=== PATIENT | female | born 1995 | race Caucasian/White ===

== ENCOUNTER 2020-01-10 02:29 | Emergency (ER) | payer SELFPAY ==
[2020-01-10 02:29] VITALS: BP 126/92; PULSE 81; RESP 20; TEMP 36.8; O2SAT 96
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
[2020-01-10] MEDS: SODIUM CHLORIDE 0.9% IV 1,000 ML 999 ML IV CONT (02:46)
[2020-01-10 02:58] LABS: Basophils Percent Auto 0.9 % (0.2-1.2); Eosinophils Percent Auto 0.7 % (0-4.4); Hematocrit 41.2 % (37.0-47.0); Hemoglobin 13.6 g/dL (12.0-15.0); Immature Granulocyte Absolute 0.02 K/mm3 (0.00-0.031); Immature Granulocyte Percent A 0.5 % (0-0.5); Lymphocytes Absolute Auto 1.48 K/mm3 (0.9-3.2); Lymphocytes Percent Auto 34.6 % (18.3-44.2); Mean Corpuscular Hemoglobin 32.2 pg (26-34); Mean Corpuscular Volume 97.4 fl (80-100); Mean Platelet Volume 9.4 fl (7.4-10.4); Monocytes Absolute Auto 0.4 K/mm3 (0.1-0.6); Monocytes Percent Auto 8.9 % (2.6-8.5); Neutrophils Absolute Auto 2.3 K/mm3 (1.3-6.7); Neutrophils Percent Auto 54.4 % (45.5-73.1); Platelet Count Result 156 k/mm3 (150-375); Red Blood Count 4.23 M/mm3 (4.2-5.4); Red Cell Distribution Width 14.6 % (11.5-14.5); White Blood Count 4.3 K/mm3 (4.5-10.0)
[2020-01-10 03:07] LABS: Alanine Aminotransferase 44 U/L (4-35); Albumin Level 4.3 g/dL (3.5-5.1); Alkaline Phosphatase 69 U/L (38-126); Anion Gap 15.7 mmol/L (7-16); Aspartate Amino Transferase 41 U/L (14-36); Bilirubin,Total 0.1 mg/dL (0.2-1.3); Blood Urea Nitrogen 9 mg/dL (7-17); Calcium 7.8 mg/dL (8.4-10.2); Carbon Dioxide 25 mmol/L (22-30); Chloride 106 mmol/L (98-107); Estimated Glomerular Filt Rate > 60; Glucose 115 mg/dL (65-105); Potassium 3.7 mmol/L (3.4-5.0); Sodium 143 mmol/L (137-145)
[2020-01-10 03:17] LABS: Ethanol 519 mg/dL (<10)
[2020-01-10 03:29] VITALS: BP 126/88; PULSE 92; RESP 20; O2SAT 99
[2020-01-10 03:31] LABS: Add Urine Microscopic? NO; Appearance Urine Clear (Clear); Bilirubin Urine Negative (Negative); Blood Urine Negative (Negative); Color Urine Colorless (Yellow); Glucose Urine UA Negative (Negative); Ketones Urine Negative (Negative); Leukocyte Esterase Ur Negative LEU/UL (Negative); Nitrate Urine Negative (Negative); Protein Urine Negative (Negative); Urobilinogen Urine Negative mg/dL (<2.0)
[2020-01-10 03:34] LABS: Specific Grav Ur 1.003 (1.001-1.035)
[2020-01-10 03:48] LABS: Amphetamine Screen Urine Negative (Negative); Barbiturate Screen Urine Negative (Negative); Benzodiazepines Screen Urine Negative (Negative); Cannabinoid Screen Urine Negative (Negative); Cocaine Screen Urine Negative (Negative); Methadone Screen Urine Negative (Negative); Opiate Screen Urine Negative (Negative); Phencyclidine Screen Urine Negative (Negative)
[2020-01-10 04:42] VITALS: BP 120/58; PULSE 82; RESP 18; O2SAT 99
--- NOTE | 2020-01-10 06:49 | ECG_ITS ---
Measurements Intervals [place] Rate: 88 P: 60 DE: 145 QRS: 42 QRSD: 109 T: 31 QT: 356 QTc: 433 Interpretive Statements SINUS RHYTHM INCOMPLETE RIGHT BUNDLE BRANCH BLOCK DELAYED PRECORDIAL R/S TRANSITION BORDERLINE ECG Electronically Signed On 01-10-2020 7:35:20 CDT by Nirmal Pavon D.O.
[2020-01-10 06:50] VITALS: BP 107/58; PULSE 101; RESP 18; O2SAT 99
--- NOTE | 2020-01-10 06:53 | PC.NURSE ---
pt friend guillermo called for update on pt. [phone]. this rn informed guillermo that im not able to release any information on pt unless pt okays it. guillermo states he understands. this rn got his number and stated that id have pt call him if she wants to when she wakes up.
[2020-01-10 09:46] VITALS: BP 93/65; PULSE 72; RESP 18; O2SAT 100
--- NOTE | 2020-01-10 11:19 | PC.NURSE ---
Pt asking to go home. Pt states I can get an uber to come and pick me up I asked pt if she had anyone to pick her up she states her roomate is working and cant get here until after work
--- NOTE | 2020-01-10 11:21 | PC.NURSE ---
Pt ambulatory to the bathroom with tech standing by
[2020-01-10 13:34] VITALS: BP 140/95; PULSE 99; RESP 18; O2SAT 97
--- NOTE | 2020-01-10 13:34 | PC.NURSE ---
Pt is A&Ox4, able to ambulate without assistance. MD and charge nurse ok with patient taking a cab home.
== END 2020-01-10 13:46 | disposition home or self-care (01) ==
PROVIDERS: Emergency Medicine; Emergency Provider Emergency Medicine; PCP Family Medicine
DX: F10.920 Alcohol use, unspecified with intoxication, uncomplicated (principal); Y90.8 Blood alcohol level of 240 mg/100 ml or more; I45.10 Unspecified right bundle-branch block
CPT/HCPCS: 36415; 80053; 80307; 81003; 81025; 85025; 93005; 99283; J7030

== ENCOUNTER 2020-03-05 07:45 | Emergency (ER) | payer MEDICAID, SELFPAY ==
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
[2020-03-05 07:45] VITALS: BP 136/79; PULSE 109; RESP 18; TEMP 36.4; O2SAT 100
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
[2020-03-05] MEDS: SODIUM CHLORIDE 0.9% IV 1,000 ML 999 ML IV CONT (07:59)
--- NOTE | 2020-03-05 08:00 | PC.NURSE ---
Pt refused for her blood work to be sent to the lab
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
[2020-03-05 08:37] VITALS: BP 124/75; PULSE 84; RESP 18; O2SAT 98
[2020-03-05 09:25] LABS: Estimated CRCL calculation 81 ml/min; Estimated Glomerular Filt Rate > 60
[2020-03-05 09:52] VITALS: BP 118/70; PULSE 118; RESP 16; O2SAT 98
--- NOTE | 2020-03-05 10:43 | PC.NURSE ---
[facility] declined transfer [facility] accepted ETA [id number] Trip #[id number]
[2020-03-05 11:00] VITALS: BP 117/80; PULSE 82; RESP 19; O2SAT 97
[2020-03-05 11:19] VITALS: BP 114/68; PULSE 72; RESP 18; O2SAT 100
== END 2020-03-05 11:21 | disposition short-term general hospital (02) ==
PROVIDERS: Emergency Provider Emergency Medicine
DX: S06.5X0A Traumatic subdural hemorrhage without loss of consciousness, initial encounter (principal); S27.321A Contusion of lung, unilateral, initial encounter; S22.088A Other fracture of T11-T12 vertebra, initial encounter for closed fracture; V48.5XXA Car driver injured in noncollision transport accident in traffic accident, initial encounter
CPT/HCPCS: 70450; 70486; 71260; 74177; 96360; 99285; J7030; L0140; Q9967

== ENCOUNTER 2020-03-31 16:46 | Emergency (ER) | payer MEDICAID, SELFPAY ==
[2020-03-31] VITALS (19 sets, daily range): BP systolic 102–143; BP diastolic 68–103; PULSE 68–128; RESP 14–28; TEMP 37.2; O2SAT 92–100
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
[2020-03-31 17:08] LABS: Basophils Percent Auto 0.5 % (0.2-1.2); Eosinophils Percent Auto 0.2 % (0-4.4); Hematocrit 40.4 % (37.0-47.0); Hemoglobin 13.8 g/dL (12.0-15.0); Immature Granulocyte Absolute 0.01 K/mm3 (0.00-0.031); Immature Granulocyte Percent A 0.2 % (0-0.5); Lymphocytes Absolute Auto 2.21 K/mm3 (0.9-3.2); Lymphocytes Percent Auto 36.9 % (18.3-44.2); Mean Corpuscular HGB Conc 34.2 g/dl (32-36); Mean Corpuscular Hemoglobin 32.3 pg (26-34); Mean Corpuscular Volume 94.6 fl (80-100); Mean Platelet Volume 9.6 fl (7.4-10.4); Monocytes Absolute Auto 0.2 K/mm3 (0.1-0.6); Monocytes Percent Auto 3.8 % (2.6-8.5); Neutrophils Absolute Auto 3.5 K/mm3 (1.3-6.7); Neutrophils Percent Auto 58.4 % (45.5-73.1); Platelet Count Result 120 k/mm3 (150-375); Red Blood Count 4.27 M/mm3 (4.2-5.4); Red Cell Distribution Width 12.6 % (11.5-14.5)
--- NOTE | 2020-03-31 17:09 | ECG_ITS ---
Measurements Intervals [place] Rate: 99 P: 46 MI: 144 QRS: 33 QRSD: 99 T: 37 QT: 373 QTc: 479 Interpretive Statements SINUS RHYTHM INCOMPLETE RIGHT BUNDLE BRANCH BLOCK BASELINE WANDER- I, III, AVL, AVF, V4 BORDERLINE ECG Electronically Signed On 04-01-2020 7:02:09 CDT by Nirmal Pavon D.O.
[2020-03-31 17:22] LABS: Alanine Aminotransferase 100 U/L (4-35); Albumin Level 4.5 g/dL (3.5-5.1); Alkaline Phosphatase 108 U/L (38-126); Anion Gap 15 mmol/L (8-16); Aspartate Amino Transferase 221 U/L (14-36); Blood Urea Nitrogen 11 mg/dL (7-17); Calcium 7.9 mg/dL (8.4-10.2); Carbon Dioxide 23 mmol/L (22-30); Chloride 108 mmol/L (98-107); Estimated CRCL calculation 138 ml/min; Estimated Glomerular Filt Rate > 60; Glucose 82 mg/dL (65-105); Potassium 4.4 mmol/L (3.4-5.0); Sodium 146 mmol/L (137-145)
[2020-03-31 17:30] LABS: Ethanol 565 mg/dL (<10)
--- NOTE | 2020-03-31 18:18 | PC.NURSE ---
Pt asked to provide urine sample. Pt attempted to urinate on bedpan but was unsuccessful.
[2020-03-31] MEDS: SODIUM CHLORIDE 0.9% IV 1,000 ML 999 ML IV CONT (18:55)
[2020-03-31 19:37] LABS: Add Urine Microscopic? YES; Appearance Urine Clear (Clear); Bilirubin Urine Negative (Negative); Blood Urine 3+ (Negative); Color Urine Straw (Yellow); Glucose Urine UA Negative (Negative); Ketones Urine Negative (Negative); Leukocyte Esterase Ur Negative LEU/UL (Negative); Mucus Urine Rare /lpf; Nitrate Urine Negative (Negative); Protein Urine Negative (Negative); Squamous Epithelial Cell Urine Many /hpf (Few); Urobilinogen Urine Negative mg/dL (<2.0); WBC Urine 0-3 /hpf
[2020-03-31 20:25] LABS: Amphetamine Screen Urine Negative (Negative); Barbiturate Screen Urine Negative (Negative); Benzodiazepines Screen Urine Negative (Negative); Cannabinoid Screen Urine Negative (Negative); Cocaine Screen Urine Negative (Negative); Methadone Screen Urine Negative (Negative); Opiate Screen Urine Negative (Negative); Phencyclidine Screen Urine Negative (Negative)
[2020-03-31 22:23] LABS: Ethanol 438 mg/dL (<10)
== END 2020-04-01 01:16 | disposition home or self-care (01) ==
PROVIDERS: Emergency Medicine; Emergency Provider Nurse Practitioner
DX: F10.920 Alcohol use, unspecified with intoxication, uncomplicated (principal); Y90.8 Blood alcohol level of 240 mg/100 ml or more
CPT/HCPCS: 36415; 80053; 80307; 81001; 81025; 85025; 93005; 96360; 99284; J7030